=== PATIENT | female | born 1960 | race Caucasian/White ===

== ENCOUNTER 2018-05-25 18:18 | Emergency (ER) | payer OTHER ==
[2018-05-25 19:00] VITALS: BMI 31.1
--- NOTE | 2018-05-25 19:35 | C.PDOC ---
History Of Present Illness Patient presents to the ER with left arm pain radiating from the neck with occasional SOB. Patient is currently speaking in complete sentences, she has not taken anything for her symptoms. Denies fever, chills, nausea, or vomiting. Time Seen by Provider: 05/25/18 19:35 Chief Complaint (Nursing): Upper Extremity Problem/Injury History Per: Patient History/Exam Limitations: no limitations Onset/Duration Of Symptoms: Hrs Current Symptoms Are (Timing): Still Present Severity: Moderate Pain Scale Rating Of: 4 Recent travel outside of the [place]: No Past Medical History Reviewed: Historical Data, Nursing Documentation, Vital Signs Vital Signs: Last Vital Signs Temp 98.4 F 05/25/18 19:05 Pulse 82 05/25/18 19:05 Resp 17 05/25/18 19:05 BP 145/90 05/25/18 19:05 Pulse Ox 95 05/25/18 19:05 - Medical History PMH: HTN, Hypercholesterolemia Family History: States: No Known Family Hx - Social History Hx Alcohol Use: Yes Hx Substance Use: No - Immunization History Hx Tetanus Toxoid Vaccination: No Hx Influenza Vaccination: No Hx Pneumococcal Vaccination: No Review Of Systems Constitutional: Negative for: Fever, Chills Cardiovascular: Negative for: Chest Pain, Palpitations Respiratory: Positive for: Shortness of Breath. Negative for: Cough Gastrointestinal: Negative for: Nausea, Vomiting Musculoskeletal: Positive for: Arm Pain Neurological: Negative for: Weakness, Numbness Physical Exam - Physical Exam Appears: Non-toxic Skin: Warm, Dry Head: Normacephalic Oral Mucosa: Moist Neck: Trachea Midline, Supple Chest: Symmetrical, No Tenderness Cardiovascular: Rhythm Regular Respiratory: No Rales, No Rhonchi, No Wheezing Gastrointestinal/Abdominal: Soft, No Tenderness Neurological/Psych: Oriented x3 ED Course And Treatment - Laboratory Results Result Diagrams: 05/25/18 20:48 05/25/18 20:48 ECG: Interpreted By Me (78), Viewed By Me ECG Rhythm: Sinus Rhythm, Nonspecific Changes O2 Sat by Pulse Oximetry: 95 (Room air) Pulse Ox Interpretation: Normal - Radiology CXR: Interpreted by Me, Viewed By Me CXR Interpretation: No: Infiltrates, Fracture, Pnemothorax Progress Note: EKG, blood work, CXR, and urinalysis ordered. Aspirin administere d. Reevaluation Time: 21:50 Reassessment Condition: Improved Disposition Counseled Patient/Family Regarding: Studies Performed, Diagnosis, Need For Followup, Rx Given - Disposition Referrals: Kavon Elizabeth MD [Staff Provider] - Disposition: HOME/ ROUTINE Disposition Time: 19:35 Condition: FAIR Additional Instructions: Please return if symptoms recur Prescriptions: Naproxen [Naprosyn] 1 tab PO BID PRN #25 tab PRN Reason: Pain Instructions: Costochondritis (DC) Forms: [employer] (Hungarian) - Clinical Impression Clinical Impression: Costochondral chest pain - Scribe Statement The provider has reviewed the documentation as recorded by the Scribe Efrain Freedman All medical record entries made by the Scribe were at my direction and personally dictated by me. I have reviewed the chart and agree that the record accurately reflects my personal performance of the history, physical exam, medical decision making, and the department course for this patient. I have also personally directed, reviewed, and agree with the discharge instructions and disposition.
[2018-05-25] MEDS ORDERED: Aspirin 325 mg EC Tablets PO STA (19:41)
[2018-05-25] MEDS ORDERED: Aspirin 325 mg EC Tablets PO ONE (20:09)
[2018-05-25 20:49] LABS: SQUAMOUS EPITHIAL 1 /hpf (0-5)
[2018-05-25 20:57] LABS: URINE BILIRUBIN NEGATIVE (NEGATIVE); URINE BLOOD TRACE-INTACT (NEGATIVE); URINE CLARITY Clear (Clear); URINE COLOR YELLOW (YELLOW); URINE GLUCOSE (UA) NEGATIVE (Normal)
[2018-05-25 20:58] LABS: URINE LEUKOCYTE ESTERASE NEGATIVE Leu/uL (Negative); URINE PROTEIN NEGATIVE (NEGATIVE); URINE UROBILINOGEN 0.2 mg/dL (0.2-1.0)
[2018-05-25 21:01] LABS: BASO % 0.3 % (0.0-2.0); EOS # 0.1 K/uL (0.0-0.7); EOS % 1.5 % (0.0-4.0); LYMPH # 1.7 K/uL (1.0-4.3); LYMPH % 19.8 % (20.0-40.0); MEAN CELL VOLUME 92.4 fL (81.0-99.0); MEAN CORPUSCULAR HGB CONC 33.5 g/dL (33.0-37.0); MEAN PLATELET VOLUME 8.9 fL (7.2-11.7); MONO # 0.5 K/uL (0.0-0.8); MONO % 5.6 % (0.0-10.0); NEUT # 6.2 K/uL (1.8-7.0); NEUT % 72.8 % (50.0-75.0); RBC 4.2 Mil/uL (3.80-5.20); RED CELL DISTRIBUTION WIDTH 13.7 % (11.5-14.5); WHITE BLOOD COUNT 8.5 K/uL (4.8-10.8)
[2018-05-25 21:18] LABS: PROTHROMBIN TIME 11.4 SECONDS (9.7-12.2)
[2018-05-25 21:24] LABS: ALB/GLOB RATIO 1.4 (1.0-2.1); ALBUMIN 4.5 g/dL (3.5-5.0); ALT/SGPT 29 U/L (9-52); AST/SGOT 56 U/L (14-36); BLOOD UREA NITROGEN 21 mg/dL (7-17); CALCIUM 10.1 mg/dl (8.6-10.4); GFR NON-AFRICAN AMERICAN > 60
[2018-05-25 21:45] LABS: B-TYPE NATRIURETIC PEPTIDE 29.6 pg/mL (0-900)
[2018-05-25 22:05] VITALS: BP 163/97; PULSE 90; RESP 20; TEMP 97.4; O2SAT 100
--- NOTE | 2018-05-26 10:00 | RAD ---
Chest x-ray single frontal view HISTORY: Shortness of breath. COMPARISON: None available. Findings: No focal infiltrate or effusion. Tortuous ectatic aorta. Heart size within normal limits. Bibasilar breast shadows. Degenerative changes in the spine. Impression: No focal infiltrate or effusion. Tortuous ectatic aorta. Heart size within normal limits. Bibasilar breast shadows.
--- NOTE | 2018-05-26 20:36 | CARD ---
APPROVED REPORT Date of service: 05/25/2018 EKG Measurement Heart [id number] <Conclusion> Normal sinus rhythm Normal ECG
== END 2018-05-25 22:23 | disposition home or self-care (01) ==
LOC: C.ER 18:18
DX: R07.9 Chest pain, unspecified (principal); E78.00 Pure hypercholesterolemia, unspecified; I10 Essential (primary) hypertension
CPT/HCPCS: 71045; 80053; 81001; 82948; 83735; 83880; 84484; 85025; 85610; 85730; 93005; 96374; 99284; J1885